=== PATIENT | female | born 1965 | race African-American/Black ===

== ENCOUNTER 2017-06-14 15:15 | Observation (INO) ==
[2017-06-14 16:56] LABS: Basophils % 0.6 % (0.0-0.8); Eosinophils # 0.3 10*3/uL (0.0-0.87); Hemoglobin 10.2 GM/DL (12.0-16.0); Immature Granulocytes % 0.2 %; Immature Granulocytes Absolute 0.01 #; Lymphocytes # 1.4 10*3/uL (1.4-4.0); Lymphocytes % 29.5 % (21.3-54.2); Mean Corpuscular Hemoglobin 29 PG (27-34); Mean Platelet Volume 10.7 FL (9.6-12.0); Monocytes # 0.4 10*3/uL (0.11-0.8); Monocytes % 8.7 % (1.7-12.7); Neutrophils # 2.7 10*3/uL (1.4-7.4); Platelet Count 229 T/CUMM (130-400); Red Blood Count 3.49 MC/CUMM (3.8-5.5); Red Cell Distribution Width 13.9 % (9.3-17.3); White Blood Count 4.8 T/CUMM (4-12)
[2017-06-14 17:09] LABS: PT Patient Result 10.6 SECS
[2017-06-14 17:11] LABS: Apearance,Urine CLEAR (Clear); Bacteria,Urine Occasional /HPF (Few); Bilirubin,Urine Negative (Negative); Blood, Urine Small mg/dL (Negative); Glucose,Urine (UA) >=500 mg/dL (Negative); Ketones,Urine Negative (Negative); Nitrite,Urine Negative (Negative); Protein,Urine 30 MG/DL; RBC,Urine 1 /HPF (0-4); Squamous Epithelial Cell,Urine Occasional /HPF (0-10); Urine Color Straw (Yellow); Urine Specific Gravity 1.002 (1.001-1.035); Urine Urobilinogen < 2.0 EU/DL (0.2-1.0); WBC,Urine 1 /HPF (0-6)
[2017-06-14 17:18] LABS: Barbiturates Screen,Urine Negative (Negative); Benzodiazepines Screen,Urine Negative (Negative); Cannabinoid Screen,Urine Negative (Negative); Opiate Screen,Urine Negative (Negative); Phencyclidine Screen,Urine Negative (Negative)
[2017-06-14 17:26] LABS: Alanine Aminotransferase 30 U/L (13-56); Alkaline Phosphatase 85 U/L (45-117); Aspartate Amino Transferase 17 U/L (0-37); Bilirubin,Total < 0.39 MG/DL (0.2-1.0); Blood Urea Nitrogen 22 MG/DL (7-18); Calcium 8.6 MG/DL (8.5-10.1); Glucose 234 MG/DL (74-106); Magnesium 2.1 MG/DL (1.8-2.4); Osmolality,Calculated 283.8 MOS/KG (273-304); Potassium 4.3 MMOL/L (3.5-5.1); Sodium 137 MMOL/L (136-145); Total Protein 7.7 G/DL (6.4-8.3); Troponin I Only < 0.015 NG/ML (0.00-0.045)
[2017-06-14] MEDS ORDERED: DEXTROSE 50% 25 GM/50 ML VIAL IV PRN (18:07)
[2017-06-14] MEDS ORDERED: ACETAMINOPHEN 325 MG TABLET PO PRN (18:07)
[2017-06-14] MEDS ORDERED: GLUCAGON 1 MG VIAL IM PRN (18:07)
[2017-06-14] MEDS ORDERED: ONDANSETRON 4 MG/2 ML VIAL IV PRN (18:07)
[2017-06-14] MEDS ORDERED: DOCUSATE SODIUM 100 MG CAPSULE PO PRN (18:07)
[2017-06-14] MEDS ORDERED: ENOXAPARIN 40 MG/0.4 ML SYRINGE SUBCUT SCH (18:30)
[2017-06-14] MEDS: ALBUTEROL 2.5 MG/3 ML NEB RESP TX SCH (20:34)
[2017-06-14] MEDS ORDERED: amLODIPine 10 MG TABLET PO SCH (21:00)
[2017-06-14] MEDS ORDERED: ATORVASTATIN 80 MG TABLET PO SCH (21:00)
[2017-06-14] MEDS ORDERED: DIVALPROEX 500 MG TABLET PO SCH (21:00)
[2017-06-14] MEDS: INSULIN REGULAR 100 UNIT/ML SUBCUT SCH (22:32)
[2017-06-14] MEDS: GABAPENTIN 100 MG CAPSULE PO SCH (22:33)
[2017-06-14] MEDS: CARVEDILOL 6.25 MG TABLET PO SCH (22:34)
[2017-06-14] MEDS: hydrALAZINE 25 MG TABLET PO SCH (22:34)
[2017-06-14] MEDS: MAGNESIUM CHLORIDE 64 MG TABLET PO SCH (22:34)
[2017-06-14] MEDS: SPIRONOLACTONE 25 MG TABLET PO SCH (22:35)
[2017-06-14] MEDS: BENZTROPINE 1 MG TABLET PO SCH (22:35)
[2017-06-15] MEDS: ALBUTEROL 2.5 MG/3 ML NEB RESP TX SCH ×5 (00:09→17:54)
[2017-06-15] MEDS: BUDESONIDE/FORMOTEROL 160-4.5 INHALER 6 GM INH SCH ×2 (01:18→09:31)
[2017-06-15] MEDS: NITROGLYCERIN 2% OINT 1 INCH/GM PACK TOP SCH ×3 (01:18→12:33)
[2017-06-15 04:43] LABS: Basophils % 0.5 % (0.0-0.8); Eosinophils # 0.2 10*3/uL (0.0-0.87); Eosinophils % 5.2 % (0.00-10.9); Hematocrit 28.5 VOL% (35.7-47.0); Hemoglobin 9.5 GM/DL (12.0-16.0); Immature Granulocytes % 0.2 %; Immature Granulocytes Absolute 0.01 #; Lymphocytes # 1.7 10*3/uL (1.4-4.0); Lymphocytes % 41.2 % (21.3-54.2); Mean Corpuscular HGB Conc 33.3 GM/DL (32-36); Mean Corpuscular Hemoglobin 29 PG (27-34); Mean Corpuscular Volume 86.1 FL (87-102); Mean Platelet Volume 11.4 FL (9.6-12.0); Monocytes # 0.4 10*3/uL (0.11-0.8); Monocytes % 9.2 % (1.7-12.7); Neutrophils # 1.8 10*3/uL (1.4-7.4); Neutrophils % 43.7 % (38.7-73.9); Platelet Count 230 T/CUMM (130-400); Red Blood Count 3.31 MC/CUMM (3.8-5.5); Red Cell Distribution Width 14.2 % (9.3-17.3)
[2017-06-15 05:13] LABS: Calcium 8.4 MG/DL (8.5-10.1); Osmolality,Calculated 285.8 MOS/KG (273-304); Potassium 3.9 MMOL/L (3.5-5.1); Risk Ratio 2.49; VLDL CHOLESTEROL 8.4 MG/DL
[2017-06-15] MEDS: INSULIN REGULAR 100 UNIT/ML SUBCUT SCH ×3 (07:44→17:53)
[2017-06-15] MEDS ORDERED: PANTOPRAZOLE 40 MG TABLET PO SCH (09:00)
[2017-06-15] MEDS ORDERED: ARIPiprazole 10 MG TABLET PO SCH (09:00)
[2017-06-15] MEDS ORDERED: ASPIRIN EC 81 MG TABLET PO SCH (09:00)
[2017-06-15] MEDS: hydrALAZINE 25 MG TABLET PO SCH (09:32)
[2017-06-15] MEDS: MAGNESIUM CHLORIDE 64 MG TABLET PO SCH (09:32)
[2017-06-15] MEDS: SPIRONOLACTONE 25 MG TABLET PO SCH (09:32)
[2017-06-15] MEDS: FUROSEMIDE 40 MG TABLET PO SCH ×2 (09:32→17:54)
[2017-06-15] MEDS: GABAPENTIN 100 MG CAPSULE PO SCH ×2 (09:32→17:54)
[2017-06-15] MEDS: CARVEDILOL 6.25 MG TABLET PO SCH (09:32)
[2017-06-15] MEDS: BENZTROPINE 1 MG TABLET PO SCH (09:32)
[2017-06-15 17:26] VITALS: BP 151/87
[2017-06-16] MEDS ORDERED: LOSARTAN 25 MG TABLET PO SCH (09:00)
== END 2017-06-15 16:50 | disposition home or self-care (01) ==
LOC: EDBD → EDUNIT# → N.ED 15:15 → N.EDINP 15:15 → N.TELES 19:03
PROVIDERS: ADMIT Internal Medicine Nephrology; ATTEND Internal Medicine Nephrology

== ENCOUNTER 2018-02-02 13:23 | Observation (INO) ==
[2018-02-02 14:31] LABS: Basophils % 0.6 % (0.0-0.8); Eosinophils # 0.2 10*3/uL (0.0-0.87); Eosinophils % 3.6 % (0.00-10.9); Hematocrit 33.9 VOL% (35.7-47.0); Hemoglobin 10.8 GM/DL (12.0-16.0); Immature Granulocytes % 0.2 %; Immature Granulocytes Absolute 0.01 #; Lymphocytes # 1.5 10*3/uL (1.4-4.0); Lymphocytes % 31.3 % (21.3-54.2); Mean Corpuscular HGB Conc 31.9 GM/DL (32-36); Mean Corpuscular Hemoglobin 27 PG (27-34); Mean Corpuscular Volume 83.1 FL (87-102); Mean Platelet Volume 10.5 FL (9.6-12.0); Monocytes # 0.6 10*3/uL (0.11-0.8); Monocytes % 12.2 % (1.7-12.7); Neutrophils # 2.4 10*3/uL (1.4-7.4); Neutrophils % 52.1 % (38.7-73.9); Platelet Count 266 T/CUMM (130-400); Red Blood Count 4.08 MC/CUMM (3.8-5.5); Red Cell Distribution Width 15.2 % (9.3-17.3); White Blood Count 4.7 T/CUMM (4-12)
[2018-02-02 14:54] LABS: Blood Urea Nitrogen 18 MG/DL (7-18); Calcium 8.6 MG/DL (8.5-10.1); Glucose 119 MG/DL (74-106); Osmolality,Calculated 277.7 MOS/KG (273-304); Sodium 138 MMOL/L (136-145); Troponin I Only < 0.015 NG/ML (0.00-0.045)
[2018-02-02] MEDS ORDERED: GLUCAGON 1 MG VIAL IM PRN (15:46)
[2018-02-02] MEDS ORDERED: ONDANSETRON 4 MG/2 ML VIAL IV PRN (15:46)
[2018-02-02] MEDS ORDERED: ACETAMINOPHEN 325 MG TABLET PO PRN (15:46)
[2018-02-02] MEDS ORDERED: DEXTROSE 50% 25 GM/50 ML VIAL IV PRN (15:46)
[2018-02-02] MEDS ORDERED: ZALEPLON 5 MG CAPSULE PO PRN (15:46)
[2018-02-02] MEDS: SODIUM CHLORIDE 0.9% 1,000 ML IV SCH (17:46)
[2018-02-02] MEDS: hydrALAZINE 25 MG TABLET PO SCH (17:48)
[2018-02-02 18:06] LABS: Amorphous Crystals,Urine Occasional /HPF (Few); Apearance,Urine Slightly Hazy (Clear); Bilirubin,Urine Negative (Negative); Blood, Urine Small mg/dL (Negative); Glucose,Urine (UA) 50 mg/dL (Negative); Ketones,Urine Negative (Negative); Nitrite,Urine Negative (Negative); Protein,Urine >=500 MG/DL; Urine Color Yellow (Yellow); Urine Specific Gravity 1.011 (1.001-1.035); Urine Urobilinogen < 2.0 EU/DL (0.2-1.0)
[2018-02-02 18:14] LABS: Barbiturates Screen,Urine Negative (Negative); Benzodiazepines Screen,Urine Negative (Negative); Cannabinoid Screen,Urine Negative (Negative); Opiate Screen,Urine Negative (Negative); Phencyclidine Screen,Urine Negative (Negative)
[2018-02-02] MEDS: INSULIN LISPRO 100 UNIT/ML SUBCUT SCH ×2 (18:49→22:27)
[2018-02-02 19:58] LABS: Troponin I Only < 0.015 NG/ML (0.00-0.045)
[2018-02-02] MEDS: DOCUSATE SODIUM 100 MG CAPSULE PO SCH (20:34)
[2018-02-02] MEDS: ATORVASTATIN 80 MG TABLET PO SCH (20:34)
[2018-02-02] MEDS: DIVALPROEX 500 MG TABLET PO SCH (20:34)
[2018-02-02] MEDS: BENZTROPINE 1 MG TABLET PO SCH (20:35)
[2018-02-02] MEDS: traZODone 50 MG TABLET PO PRN (20:35)
[2018-02-02] MEDS: MAGNESIUM CHLORIDE 64 MG TABLET PO SCH (20:35)
[2018-02-02] MEDS: glipiZIDE 5 MG TABLET PO SCH (20:36)
[2018-02-02] MEDS: CARVEDILOL 6.25 MG TABLET PO SCH (20:36)
[2018-02-02] MEDS: ENOXAPARIN 30 MG/0.3 ML SYRINGE SUBCUT SCH (20:37)
[2018-02-02] MEDS ORDERED: PERPHENAZINE PO SCH (21:00)
[2018-02-02 23:38] LABS: Troponin I Only < 0.015 NG/ML (0.00-0.045)
[2018-02-03] MEDS: SODIUM CHLORIDE 0.9% 1,000 ML IV SCH ×3 (01:23→17:49)
[2018-02-03] MEDS: BUDESONIDE/FORMOTEROL 160-4.5 INHALER 6 GM INH SCH ×3 (01:24→20:36)
[2018-02-03 02:32] LABS: Basophils % 0.2 % (0.0-0.8); Eosinophils # 0.1 10*3/uL (0.0-0.87); Eosinophils % 3.2 % (0.00-10.9); Hematocrit 27.1 VOL% (35.7-47.0); Hemoglobin 8.6 GM/DL (12.0-16.0); Immature Granulocytes % 0.2 %; Immature Granulocytes Absolute 0.01 #; Lymphocytes # 1.4 10*3/uL (1.4-4.0); Lymphocytes % 34.8 % (21.3-54.2); Mean Corpuscular HGB Conc 31.7 GM/DL (32-36); Mean Corpuscular Hemoglobin 27 PG (27-34); Mean Corpuscular Volume 83.6 FL (87-102); Mean Platelet Volume 10.8 FL (9.6-12.0); Monocytes # 0.5 10*3/uL (0.11-0.8); Monocytes % 11.4 % (1.7-12.7); Neutrophils % 50.2 % (38.7-73.9); Platelet Count 195 T/CUMM (130-400); Red Blood Count 3.24 MC/CUMM (3.8-5.5); Red Cell Distribution Width 15.2 % (9.3-17.3)
[2018-02-03 03:09] LABS: Alanine Aminotransferase 12 U/L (13-56); Albumin 2.3 G/DL (3.4-5.0); Alkaline Phosphatase 59 U/L (45-117); Aspartate Amino Transferase 11 U/L (0-37); Bilirubin,Total < 0.39 MG/DL (0.2-1.0); Blood Urea Nitrogen 18 MG/DL (7-18); Calcium 7.7 MG/DL (8.5-10.1); Glucose 100 MG/DL (74-106); Osmolality,Calculated 282.3 MOS/KG (273-304); Potassium 3.5 MMOL/L (3.5-5.1); Sodium 141 MMOL/L (136-145); Thyroid Stimulating Hormone 0.969 uIU/ml (0.358-3.74)
[2018-02-03 04:35] LABS: Troponin I Only < 0.015 NG/ML (0.00-0.045)
[2018-02-03] MEDS: INSULIN LISPRO 100 UNIT/ML SUBCUT SCH ×4 (07:59→22:42)
[2018-02-03] MEDS: MAGNESIUM CHLORIDE 64 MG TABLET PO SCH ×2 (08:48→20:32)
[2018-02-03] MEDS: glipiZIDE 5 MG TABLET PO SCH ×2 (08:48→20:33)
[2018-02-03] MEDS: BENZTROPINE 1 MG TABLET PO SCH ×2 (08:48→20:33)
[2018-02-03] MEDS: PANTOPRAZOLE 40 MG TABLET PO SCH (08:49)
[2018-02-03] MEDS: amLODIPine 10 MG TABLET PO SCH (08:49)
[2018-02-03] MEDS: CARVEDILOL 6.25 MG TABLET PO SCH ×2 (08:49→20:33)
[2018-02-03] MEDS: DOCUSATE SODIUM 100 MG CAPSULE PO SCH ×2 (08:49→20:32)
[2018-02-03] MEDS: hydrALAZINE 25 MG TABLET PO SCH ×2 (08:50→20:33)
[2018-02-03] MEDS: ASPIRIN EC 81 MG TABLET PO SCH (08:50)
[2018-02-03] MEDS ORDERED: PANTOPRAZOLE 40 MG TABLET PO SCH (09:00)
[2018-02-03] MEDS ORDERED: hydrALAZINE 20 MG/1 ML VIAL IV PRN (12:27)
[2018-02-03] MEDS: traZODone 50 MG TABLET PO PRN (20:32)
[2018-02-03] MEDS: DIVALPROEX 500 MG TABLET PO SCH (20:33)
[2018-02-03] MEDS: ATORVASTATIN 80 MG TABLET PO SCH (20:33)
[2018-02-03] MEDS: ENOXAPARIN 30 MG/0.3 ML SYRINGE SUBCUT SCH (20:34)
[2018-02-04] MEDS: SODIUM CHLORIDE 0.9% 1,000 ML IV SCH ×2 (01:54→10:20)
[2018-02-04 03:26] LABS: Calcium 7.7 MG/DL (8.5-10.1); Osmolality,Calculated 284.8 MOS/KG (273-304)
[2018-02-04] MEDS: INSULIN LISPRO 100 UNIT/ML SUBCUT SCH (08:15)
[2018-02-04 09:09] VITALS: BP 179/80
[2018-02-04] MEDS: hydrALAZINE 25 MG TABLET PO SCH (10:15)
[2018-02-04] MEDS: DOCUSATE SODIUM 100 MG CAPSULE PO SCH (10:15)
[2018-02-04] MEDS: glipiZIDE 5 MG TABLET PO SCH (10:15)
[2018-02-04] MEDS: BENZTROPINE 1 MG TABLET PO SCH (10:15)
[2018-02-04] MEDS: ASPIRIN EC 81 MG TABLET PO SCH (10:15)
[2018-02-04] MEDS: CARVEDILOL 6.25 MG TABLET PO SCH (10:15)
[2018-02-04] MEDS: MAGNESIUM CHLORIDE 64 MG TABLET PO SCH (10:16)
[2018-02-04] MEDS: PANTOPRAZOLE 40 MG TABLET PO SCH (10:16)
[2018-02-04] MEDS: amLODIPine 10 MG TABLET PO SCH (10:16)
[2018-02-04] MEDS: BUDESONIDE/FORMOTEROL 160-4.5 INHALER 6 GM INH SCH (10:16)
== END 2018-02-04 11:29 | disposition home or self-care (01) ==
LOC: N.EDINP 13:23 → N.ED 13:23 → SUPCPDRO 15:46 → N.4E 17:12
PROVIDERS: ADMIT Family Medicine; ATTEND Family Medicine

== ENCOUNTER 2019-05-08 21:23 | Observation (INO) ==
[2019-05-09] MEDS ORDERED: GLUCAGON 1 MG VIAL IM PRN (00:22)
[2019-05-09] MEDS ORDERED: DEXTROSE 50% 25 GM/50 ML VIAL IV PRN (00:22)
[2019-05-09] MEDS ORDERED: ACETAMINOPHEN 325 MG TABLET PO PRN (00:30)
[2019-05-09] MEDS ORDERED: ONDANSETRON 4 MG/2 ML VIAL IV PRN (00:30)
[2019-05-09] MEDS ORDERED: hydrALAZINE 20 MG/1 ML VIAL IV PRN (00:30)
[2019-05-09] MEDS ORDERED: MORPHINE 4 MG/1 ML VIAL IV PRN (00:30)
[2019-05-09] MEDS ORDERED: NICOTINE 21 MG/24 HR PATCH TRANSDERM PRN (00:30)
[2019-05-09 01:29] LABS: Basophils % 0.3 % (0.0-0.8); Eosinophils # 0.1 10*3/uL (0.0-0.87); Eosinophils % 2.5 % (0.00-10.9); Hematocrit 25.1 VOL% (35.7-47.0); Lymphocytes # 1.2 10*3/uL (1.4-4.0); Lymphocytes % 29.6 % (21.3-54.2); Mean Corpuscular HGB Conc 31.9 GM/DL (32-36); Mean Corpuscular Volume 85.4 FL (87-102); Mean Platelet Volume 10.8 FL (9.6-12.0); Monocytes % 9.3 % (1.7-12.7); Neutrophils % 58.3 % (38.7-73.9); Platelet Count 254 T/CUMM (130-400); Red Blood Count 2.94 MC/CUMM (3.8-5.5); Red Cell Distribution Width 13.4 % (9.3-17.3)
[2019-05-09] MEDS: ATORVASTATIN 80 MG TABLET PO SCH ×2 (01:55→21:43)
[2019-05-09 01:59] LABS: Alanine Aminotransferase 19 U/L (13-56); Albumin 2.9 G/DL (3.4-5.0); Alkaline Phosphatase 87 U/L (45-117); Aspartate Amino Transferase 15 U/L (0-37); Bilirubin,Total < 0.39 MG/DL (0.2-1.0); Blood Urea Nitrogen 25 MG/DL (7-18); Calcium 8.7 MG/DL (8.5-10.1); Estimated Glom Filtration Rate 17 ML/MIN; Glucose 127 MG/DL (74-106); HDL Cholesterol 56 MG/DL (40-60); Osmolality,Calculated 291.8 MOS/KG (273-304); Risk Ratio 3.59; Total Protein 6.6 G/DL (6.4-8.3); Triglycerides 121 MG/DL (2-150); VLDL CHOLESTEROL 24.2 MG/DL
[2019-05-09] MEDS: amLODIPine 10 MG TABLET PO SCH (05:14)
[2019-05-09] MEDS: carvediloL 6.25 MG TABLET PO SCH ×3 (05:14→21:43)
[2019-05-09] MEDS: PANTOPRAZOLE 40 MG TABLET PO SCH (05:14)
[2019-05-09] MEDS: ASPIRIN EC 81 MG TABLET PO SCH (05:14)
[2019-05-09 08:30] LABS: Troponin I 0.042 NG/ML (0.00-0.045)
[2019-05-09] MEDS: INSULIN REGULAR 100 UNIT/ML SUBCUT SCH ×4 (09:14→22:35)
[2019-05-09 11:39] LABS: % Iron Saturation 14.3 % (18-50)
[2019-05-09 12:53] LABS: Troponin I 0.037 NG/ML (0.00-0.045)
[2019-05-09 15:07] LABS: Troponin I 0.024 NG/ML (0.00-0.045)
[2019-05-09] MEDS ORDERED: LORazepam 2 MG/1 ML VIAL IM ONE (18:42)
[2019-05-09] MEDS ORDERED: ZIPRASIDONE 20 MG/1 ML VIAL IM ONE (19:46)
[2019-05-09] MEDS ORDERED: LORazepam 1 MG TABLET PO ONE (22:16)
[2019-05-10 04:14] VITALS: BP 167/107
[2019-05-10 05:11] LABS: Basophils % 0.4 % (0.0-0.8); Eosinophils # 0.1 10*3/uL (0.0-0.87); Hematocrit 23.6 VOL% (35.7-47.0); Hemoglobin 7.3 GM/DL (12.0-16.0); Immature Granulocytes % 0.2 %; Immature Granulocytes Absolute 0.01 #; Lymphocytes % 19.4 % (21.3-54.2); Mean Corpuscular HGB Conc 30.9 GM/DL (32-36); Mean Corpuscular Volume 87.1 FL (87-102); Mean Platelet Volume 10.9 FL (9.6-12.0); Monocytes % 7.7 % (1.7-12.7); Neutrophils % 71.3 % (38.7-73.9); Platelet Count 260 T/CUMM (130-400); Red Blood Count 2.71 MC/CUMM (3.8-5.5); Red Cell Distribution Width 13.6 % (9.3-17.3); White Blood Count 5.1 T/CUMM (4-12)
[2019-05-10 05:43] LABS: Calcium 9.1 MG/DL (8.5-10.1); Osmolality,Calculated 296.6 MOS/KG (273-304)
[2019-05-10] MEDS ORDERED: carvediloL 12.5 MG TABLET PO SCH (08:55)
[2019-05-10] MEDS: PANTOPRAZOLE 40 MG TABLET PO SCH (10:07)
[2019-05-10] MEDS: carvediloL 6.25 MG TABLET PO SCH (10:07)
[2019-05-10] MEDS: INSULIN REGULAR 100 UNIT/ML SUBCUT SCH (10:07)
[2019-05-10] MEDS: ASPIRIN EC 81 MG TABLET PO SCH (10:07)
[2019-05-10] MEDS: amLODIPine 10 MG TABLET PO SCH (10:07)
[2019-05-10] MEDS ORDERED: ISOSORBIDE MONONITRATE 30 MG TABLET PO SCH (21:00)
== END 2019-05-10 09:06 | disposition left against medical advice (07) ==
LOC: N.TELEN → SUATTDRO 22:39
PROVIDERS: ADMIT Internal Medicine; ATTEND Internal Medicine

== ENCOUNTER 2019-07-10 06:11 | Observation (INO) ==
[2019-07-10] MEDS ORDERED: GLUCAGON 1 MG VIAL IM PRN (09:23)
[2019-07-10] MEDS ORDERED: LACTULOSE 20 GM/30 ML UDCUP PO PRN (09:23)
[2019-07-10] MEDS ORDERED: DEXTROSE 50% 25 GM/50 ML VIAL IV PRN (09:23)
[2019-07-10] MEDS ORDERED: ONDANSETRON 4 MG/2 ML VIAL IV PRN (09:23)
[2019-07-10] MEDS ORDERED: ACETAMINOPHEN 325 MG TABLET PO PRN (09:23)
[2019-07-10] MEDS ORDERED: LISINOPRIL 10 MG TABLET PO SCH (09:30)
[2019-07-10 09:51] LABS: Basophils % 0.2 % (0.0-0.8); Eosinophils % 0.4 % (0.00-10.9); Hematocrit 33.2 VOL% (35.7-47.0); Hemoglobin 10.6 GM/DL (12.0-16.0); Immature Granulocytes % 0.2 %; Immature Granulocytes Absolute 0.01 #; Lymphocytes # 0.8 10*3/uL (1.4-4.0); Lymphocytes % 15.7 % (21.3-54.2); Mean Corpuscular HGB Conc 31.9 GM/DL (32-36); Mean Corpuscular Volume 83.2 FL (87-102); Mean Platelet Volume 11.9 FL (9.6-12.0); Monocytes % 7.5 % (1.7-12.7); Platelet Count 124 T/CUMM (130-400); Red Blood Count 3.99 MC/CUMM (3.8-5.5); White Blood Count 4.8 T/CUMM (4-12)
[2019-07-10] MEDS ORDERED: ALBUTEROL 2.5 MG/3 ML NEB RESP TX PRN (10:00)
[2019-07-10 10:09] LABS: Risk Ratio 2.25; VLDL CHOLESTEROL 13.6 MG/DL
[2019-07-10 10:10] LABS: Calcium 8.6 MG/DL (8.5-10.1); Osmolality,Calculated 289.8 MOS/KG (273-304); Total Protein 7.3 G/DL (6.4-8.3)
[2019-07-10 10:17] LABS: Thyroid Stimulating Hormone 1.52 uIU/ml (0.358-3.74)
[2019-07-10] MEDS: SODIUM CHLORIDE 0.9% 1,000 ML IV SCH ×2 (14:59→22:02)
[2019-07-10] MEDS: amLODIPine 10 MG TABLET PO SCH (15:00)
[2019-07-10] MEDS: hydrALAZINE 25 MG TABLET PO SCH ×2 (15:00→20:47)
[2019-07-10] MEDS: BENZTROPINE 1 MG TABLET PO SCH ×2 (15:00→20:47)
[2019-07-10] MEDS: HEPARIN 5,000 UNIT/1 ML VIAL SUBCUT SCH ×2 (15:00→20:53)
[2019-07-10] MEDS: PANTOPRAZOLE 40 MG TABLET PO SCH (15:01)
[2019-07-10] MEDS: ASPIRIN EC 81 MG TABLET PO SCH (15:01)
[2019-07-10] MEDS: carvediloL 6.25 MG TABLET PO SCH ×2 (15:01→20:47)
[2019-07-10 20:12] LABS: Barbiturates Screen,Urine Negative (Negative); Benzodiazepines Screen,Urine Negative (Negative); Cannabinoid Screen,Urine Negative (Negative); Opiate Screen,Urine Negative (Negative); Phencyclidine Screen,Urine Negative (Negative)
[2019-07-10 20:17] LABS: Apearance,Urine CLEAR (Clear); Bacteria,Urine Occasional /HPF (Few); Bilirubin,Urine Negative (Negative); Blood, Urine Negative (Negative); Glucose,Urine (UA) Negative (Negative); Hyaline Casts,Urine 4 /LPF (0-3); Ketones,Urine Negative (Negative); Nitrite,Urine Negative (Negative); Protein,Urine 100 MG/DL; RBC,Urine 3 /HPF (0-4); Squamous Epithelial Cell,Urine Occasional /HPF (0-10); Urine Color Yellow (Yellow); Urine Specific Gravity 1.011 (1.001-1.035); Urine Urobilinogen < 2.0 EU/DL (0.2-1.0)
[2019-07-10] MEDS: OLANZapine 5 MG TABLET PO SCH (20:47)
[2019-07-10] MEDS: DIVALPROEX 500 MG TABLET PO SCH (20:47)
[2019-07-10] MEDS: ATORVASTATIN 80 MG TABLET PO SCH (20:47)
[2019-07-11] MEDS: SODIUM CHLORIDE 0.9% 1,000 ML IV SCH ×3 (03:30→22:52)
[2019-07-11] MEDS: HEPARIN 5,000 UNIT/1 ML VIAL SUBCUT SCH ×3 (04:45→22:52)
[2019-07-11 05:23] LABS: Basophils % 0.3 % (0.0-0.8); Eosinophils # 0.1 10*3/uL (0.0-0.87); Eosinophils % 1.4 % (0.00-10.9); Hematocrit 29.6 VOL% (35.7-47.0); Hemoglobin 9.3 GM/DL (12.0-16.0); Immature Granulocytes % 0.3 %; Immature Granulocytes Absolute 0.01 #; Lymphocytes # 0.9 10*3/uL (1.4-4.0); Lymphocytes % 24.7 % (21.3-54.2); Mean Corpuscular HGB Conc 31.4 GM/DL (32-36); Mean Corpuscular Volume 85.3 FL (87-102); Mean Platelet Volume 12.1 FL (9.6-12.0); Monocytes % 10.9 % (1.7-12.7); Neutrophils % 62.4 % (38.7-73.9); Platelet Count 113 T/CUMM (130-400); Red Blood Count 3.47 MC/CUMM (3.8-5.5); Red Cell Distribution Width 15.1 % (9.3-17.3); White Blood Count 3.7 T/CUMM (4-12)
[2019-07-11 05:52] LABS: Burr Cells Slight; Hypochromasia 1+; Ovalocytes Slight; Platelet Estimate Decreased
[2019-07-11 06:01] LABS: Calcium 7.6 MG/DL (8.5-10.1); Osmolality,Calculated 299.1 MOS/KG (273-304)
[2019-07-11] MEDS: ASPIRIN EC 81 MG TABLET PO SCH (09:01)
[2019-07-11] MEDS: hydrALAZINE 25 MG TABLET PO SCH ×3 (09:01→22:52)
[2019-07-11] MEDS: BENZTROPINE 1 MG TABLET PO SCH ×2 (09:01→22:51)
[2019-07-11] MEDS: PANTOPRAZOLE 40 MG TABLET PO SCH (09:02)
[2019-07-11] MEDS: carvediloL 6.25 MG TABLET PO SCH ×2 (09:02→22:52)
[2019-07-11] MEDS: amLODIPine 10 MG TABLET PO SCH (09:02)
[2019-07-11 16:51] LABS: Creatinine,Urine Random 39 MG/DL; Total Protein,Urine Random 46 MG/DL; Urea Nitrogen, Urine Random 295 MG/DL
[2019-07-11] MEDS: OLANZapine 5 MG TABLET PO SCH (22:51)
[2019-07-11] MEDS: DIVALPROEX 500 MG TABLET PO SCH (22:51)
[2019-07-11] MEDS: ATORVASTATIN 80 MG TABLET PO SCH (22:52)
[2019-07-12] MEDS: SODIUM CHLORIDE 0.9% 1,000 ML IV SCH ×2 (03:55→18:07)
[2019-07-12 04:45] LABS: Basophils % 0.3 % (0.0-0.8); Eosinophils # 0.1 10*3/uL (0.0-0.87); Eosinophils % 3.1 % (0.00-10.9); Hematocrit 27.4 VOL% (35.7-47.0); Hemoglobin 8.7 GM/DL (12.0-16.0); Immature Granulocytes % 0.3 %; Immature Granulocytes Absolute 0.01 #; Lymphocytes # 1.3 10*3/uL (1.4-4.0); Lymphocytes % 40.1 % (21.3-54.2); Mean Corpuscular HGB Conc 31.8 GM/DL (32-36); Mean Corpuscular Volume 85.1 FL (87-102); Mean Platelet Volume 12.2 FL (9.6-12.0); Monocytes % 7.1 % (1.7-12.7); Neutrophils % 49.1 % (38.7-73.9); Platelet Count 109 T/CUMM (130-400); Red Blood Count 3.22 MC/CUMM (3.8-5.5); Red Cell Distribution Width 14.8 % (9.3-17.3); White Blood Count 3.2 T/CUMM (4-12)
[2019-07-12 05:13] LABS: Calcium 7.6 MG/DL (8.5-10.1); Osmolality,Calculated 300.8 MOS/KG (273-304)
[2019-07-12] MEDS: HEPARIN 5,000 UNIT/1 ML VIAL SUBCUT SCH ×3 (05:40→22:19)
[2019-07-12 06:04] LABS: Anisocytosis 1+; Eosinophils 4 % (0-10); Lymphocytes 41 % (20-55); Segmented Neutrophils 51 % (50-85); Total Cells Counted 100
[2019-07-12 06:05] LABS: Platelet Estimate Decreased
[2019-07-12] MEDS: BENZTROPINE 1 MG TABLET PO SCH ×2 (10:38→22:17)
[2019-07-12] MEDS: PANTOPRAZOLE 40 MG TABLET PO SCH (10:39)
[2019-07-12] MEDS: hydrALAZINE 25 MG TABLET PO SCH ×3 (10:39→22:17)
[2019-07-12] MEDS: amLODIPine 10 MG TABLET PO SCH (10:39)
[2019-07-12] MEDS: carvediloL 6.25 MG TABLET PO SCH ×2 (10:39→22:18)
[2019-07-12] MEDS: ASPIRIN EC 81 MG TABLET PO SCH (10:39)
[2019-07-12] MEDS: ATORVASTATIN 80 MG TABLET PO SCH (22:18)
[2019-07-12] MEDS: DIVALPROEX 500 MG TABLET PO SCH (22:18)
[2019-07-12] MEDS: OLANZapine 5 MG TABLET PO SCH (22:18)
[2019-07-13] MEDS: SODIUM CHLORIDE 0.9% 1,000 ML IV SCH (03:10)
[2019-07-13 05:16] LABS: Basophils % 0.3 % (0.0-0.8); Eosinophils # 0.2 10*3/uL (0.0-0.87); Eosinophils % 5.2 % (0.00-10.9); Hematocrit 27.4 VOL% (35.7-47.0); Hemoglobin 8.5 GM/DL (12.0-16.0); Immature Granulocytes % 0.6 %; Immature Granulocytes Absolute 0.02 #; Lymphocytes # 1.4 10*3/uL (1.4-4.0); Lymphocytes % 42.5 % (21.3-54.2); Mean Corpuscular Volume 86.2 FL (87-102); Mean Platelet Volume 11.6 FL (9.6-12.0); Monocytes % 7.7 % (1.7-12.7); Neutrophils % 43.7 % (38.7-73.9); Platelet Count 107 T/CUMM (130-400); Red Blood Count 3.18 MC/CUMM (3.8-5.5); Red Cell Distribution Width 14.9 % (9.3-17.3); White Blood Count 3.3 T/CUMM (4-12)
[2019-07-13 05:29] LABS: Calcium 7.8 MG/DL (8.5-10.1); Osmolality,Calculated 293.1 MOS/KG (273-304)
[2019-07-13] MEDS: HEPARIN 5,000 UNIT/1 ML VIAL SUBCUT SCH ×2 (05:50→18:19)
[2019-07-13 06:12] LABS: Platelet Estimate Adequate
[2019-07-13 06:13] LABS: Acanthocytes Few; Burr Cells Few
[2019-07-13 06:14] LABS: Ovalocytes Few
[2019-07-13] MEDS: hydrALAZINE 25 MG TABLET PO SCH ×2 (09:18→18:19)
[2019-07-13] MEDS: BENZTROPINE 1 MG TABLET PO SCH (09:18)
[2019-07-13] MEDS: carvediloL 6.25 MG TABLET PO SCH (09:18)
[2019-07-13] MEDS: PANTOPRAZOLE 40 MG TABLET PO SCH (09:18)
[2019-07-13] MEDS: amLODIPine 10 MG TABLET PO SCH (09:19)
[2019-07-13] MEDS: ASPIRIN EC 81 MG TABLET PO SCH (09:19)
[2019-07-14] MEDS: BENZTROPINE 1 MG TABLET PO SCH ×3 (00:02→20:44)
[2019-07-14] MEDS: hydrALAZINE 25 MG TABLET PO SCH ×2 (00:02→09:37)
[2019-07-14] MEDS: ATORVASTATIN 80 MG TABLET PO SCH ×2 (00:03→20:44)
[2019-07-14] MEDS: carvediloL 6.25 MG TABLET PO SCH ×3 (00:03→20:44)
[2019-07-14] MEDS: OLANZapine 5 MG TABLET PO SCH ×2 (00:03→20:44)
[2019-07-14] MEDS: DIVALPROEX 500 MG TABLET PO SCH ×2 (00:03→20:44)
[2019-07-14] MEDS: HEPARIN 5,000 UNIT/1 ML VIAL SUBCUT SCH ×4 (00:08→20:46)
[2019-07-14] MEDS: SODIUM CHLORIDE 0.9% 1,000 ML IV SCH ×3 (00:12→09:37)
[2019-07-14 05:56] LABS: Basophils % 0.3 % (0.0-0.8); Eosinophils # 0.2 10*3/uL (0.0-0.87); Eosinophils % 5.1 % (0.00-10.9); Hematocrit 27.9 VOL% (35.7-47.0); Hemoglobin 8.8 GM/DL (12.0-16.0); Immature Granulocytes % 0.5 %; Immature Granulocytes Absolute 0.02 #; Lymphocytes # 1.5 10*3/uL (1.4-4.0); Lymphocytes % 40.7 % (21.3-54.2); Mean Corpuscular HGB Conc 31.5 GM/DL (32-36); Mean Corpuscular Volume 86.1 FL (87-102); Mean Platelet Volume 11.6 FL (9.6-12.0); Monocytes % 8.9 % (1.7-12.7); Neutrophils % 44.5 % (38.7-73.9); Platelet Count 113 T/CUMM (130-400); Red Blood Count 3.24 MC/CUMM (3.8-5.5); Red Cell Distribution Width 14.7 % (9.3-17.3); White Blood Count 3.7 T/CUMM (4-12)
[2019-07-14 06:23] LABS: Acanthocytes Few; Atypical Lymphocytes Few; Eosinophils 3 % (0-10); Hypochromasia 1+; Lymphocytes 41 % (20-55); Microcytosis 1+; Segmented Neutrophils 48 % (50-85); Total Cells Counted 100
[2019-07-14 06:24] LABS: Burr Cells Slight; Platelet Estimate Adequate
[2019-07-14 06:25] LABS: Calcium 8.3 MG/DL (8.5-10.1); Osmolality,Calculated 296.6 MOS/KG (273-304)
[2019-07-14] MEDS: PANTOPRAZOLE 40 MG TABLET PO SCH (09:37)
[2019-07-14] MEDS: amLODIPine 10 MG TABLET PO SCH (09:37)
[2019-07-14] MEDS: ASPIRIN EC 81 MG TABLET PO SCH (09:37)
[2019-07-15 04:44] LABS: Basophils % 0.3 % (0.0-0.8); Eosinophils # 0.2 10*3/uL (0.0-0.87); Eosinophils % 5.3 % (0.00-10.9); Hematocrit 28.7 VOL% (35.7-47.0); Lymphocytes # 1.4 10*3/uL (1.4-4.0); Lymphocytes % 35.4 % (21.3-54.2); Mean Corpuscular HGB Conc 31.4 GM/DL (32-36); Mean Corpuscular Volume 86.2 FL (87-102); Mean Platelet Volume 11.3 FL (9.6-12.0); Monocytes % 7.3 % (1.7-12.7); Neutrophils % 51.7 % (38.7-73.9); Platelet Count 139 T/CUMM (130-400); Red Blood Count 3.33 MC/CUMM (3.8-5.5); Red Cell Distribution Width 14.8 % (9.3-17.3)
[2019-07-15 04:56] LABS: Calcium 8.6 MG/DL (8.5-10.1); Osmolality,Calculated 287.3 MOS/KG (273-304)
[2019-07-15] MEDS: HEPARIN 5,000 UNIT/1 ML VIAL SUBCUT SCH (05:13)
[2019-07-15] MEDS: BENZTROPINE 1 MG TABLET PO SCH (09:42)
[2019-07-15] MEDS: PANTOPRAZOLE 40 MG TABLET PO SCH (09:42)
[2019-07-15] MEDS: carvediloL 6.25 MG TABLET PO SCH (09:43)
[2019-07-15] MEDS: ASPIRIN EC 81 MG TABLET PO SCH (09:43)
[2019-07-15] MEDS: amLODIPine 10 MG TABLET PO SCH (09:43)
[2019-07-15 11:45] VITALS: BP 131/76
== END 2019-07-15 11:50 | disposition home or self-care (01) ==
LOC: SUATTDRO 07:51 → N.TELES 07:51 → INTOOBSV 07:51 → N.4E 07-13 23:42
PROVIDERS: ADMIT Internal Medicine; ATTEND Internal Medicine